=== PATIENT | male | born 1995 | race Caucasian/White ===

== ENCOUNTER 2024-04-25 06:50 | Day surgery (SDC) | payer BC ==
[2024-04-23 13:11] VITALS: BP 129/72
[~2024-04-25] VITALS: Ht 188 cm; Wt 72.7 kg
[~2024-04-25 06:50] MED LIST: ONDANSETRON ODT8 MG PO; VENTOLIN HFA18 GM INH; propofoL 200 MG/20 ML VIAL ONE
[2024-04-25] MEDS ORDERED: IBLOOD GLUCOSE TEST STRIP 1 EA TEST VI PRN (07:00)
[2024-04-25] MEDS ORDERED: LACTATED RINGER'S 1,000 ML IV SCH (07:00)
[2024-04-25] MEDS ORDERED: LIDOCAINE HCL 1% 5 ML SDV INJ ONE (07:00)
[2024-04-25 07:05] VITALS: BP 124/63
--- NOTE | 2024-04-25 07:20 | NUR ---
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
--- NOTE | 2024-04-25 09:00 | NUR ---
04/25/24 0900 Kate Peters 4373-PATIENT ARRIVED TO PACU ON 10L MASK NONAROUSABLE RR EVEN ORAL AIRWAY IN PLACE. PATIENT LAYING LEFT LATERAL. PLACED ON 6L MASK 100% SINUS BRADYCARDIA HR UPPER 40'S. ABDOMEN SOFT.
[2024-04-25 09:22] VITALS: BP 119/86
--- NOTE | 2024-04-25 10:43 | OR ---
[facility] [address] [place], [place] [address] Signed DATE OF OPERATION: 04/25/2024 SURGEON: Karin Solano MD PREOPERATIVE DIAGNOSES: 1. Rectal bleeding. 2. Hemorrhoids. 3. Maternal grandmother with possible colon cancer. POSTOPERATIVE DIAGNOSIS: Moderate internal and external hemorrhoids. PROCEDURE: Colonoscopy without biopsy. ESTIMATED BLOOD LOSS: None. INDICATIONS: Emanuel is a 28-year-old gentleman, originally from [place]. He has come up to [place], [place] for work. 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 He is also working at a local [employer]. He has noticed rectal bleeding. He said his work is very physical. He said he was rock climbing at about the age of 18. He had fallen and lost consciousness. He ended up at home. He was bruised all over and very sore. He said the left side was really painful. He even described hematemesis and hematochezia after the fall. He had a colonoscopy at that time. They found some hemorrhoids. He said he has trouble with the hemorrhoids intermittently. They do bleed intermittently as well. He has been to the [facility]. They gave him some hydrocortisone suppositories. He also uses MiraLAX and sitz baths as needed. He is thinking he would like to have the hemorrhoids removed. He has no family history of colon polyps. There is no family history of inflammatory bowel disease. He thinks maybe his maternal grandmother had colon cancer. In the office, I gave him our brochure on hemorrhoids and went through it in great detail. He does have some internal and external hemorrhoids on exam. He is very familiar with the medical versus surgical treatment. I also explained to Emanuel it would be sarabia if we do another colonoscopy. He is fully aware of a colonoscopy. There is risk including, but not limited to gas bloating, crampy abdominal pain, bleeding, perforation requiring surgery, and missed diagnosis. We also reviewed the written instructions for the bowel prep line by line. Also, he uses alcohol and marijuana on a daily basis. Therefore, he is a candidate for monitored anesthesia care with propofol infusion. He understands an adult person has to Electronically Signed By: KARIN SOLANO MD 04/25/24 1043 PATIENT NAME: EMANUEL MARI OPERATIVE REPORT DATE OF : [birth year] REPORT #: [id number] PHYSICIAN: KARIN SOLANO MD PCP: VANESA GREEN ASSISTANT PROFESSOR OF COMMUNICATION-C REPORT IS CONFIDENTIAL AND NOT TO BE RELEASED WITHOUT AUTHORIZATION [facility] [address] [place], [place] [address] Signed take him home afterwards. He had expressed understanding and wished to proceed. PROCEDURE IN DETAIL: Emanuel was taken into our endoscopy suite and placed in the left lateral decubitus position. He was given monitored anesthesia care with propofol infusion per our nurse fur cutting machine operator. Even then, he was moving around a fair amount. A digital rectal exam was performed and he does have circumferential external hemorrhoids. They prolapse easy with gentle traction. They are a little beefy. He had good sphincter tone. There were no masses. The adult colonoscope was introduced and advanced all around into the cecum under direct visualization of the camera without difficulty. His prep was quite excellent. We could easily see the appendiceal orifice and the ileocecal valve. The scope was then slowly withdrawn. He has no pathology throughout the entire colon or rectum. Once in the rectum, the scope was retroflexed and of course he has moderate beefy internal hemorrhoid columns. After this, the gas was suctioned out and the colonoscope removed. Emanuel tolerated the procedure quite well. RECOMMENDATIONS: Emanuel is welcome to follow up in my office as needed if he wants to pursue his hemorrhoid surgery. Otherwise, we would have him back in 10 years at the age of 38 for followup colonoscopy. He might check with his family to see if indeed his grandmother had colon cancer. MD ALLEY Garcia/BRIGIDAL /[id number] cc: MD Vanesa Garcia Copies: KARIN SOLANO MD ~ Electronically Signed By: KARIN SOLANO MD 04/25/24 1043 PATIENT NAME: EMANUEL MARI OPERATIVE REPORT DATE OF : [birth year] REPORT #: [id number] PHYSICIAN: KARIN SOLANO MD PCP: VANESA GREEN REPORT IS CONFIDENTIAL AND NOT TO BE RELEASED WITHOUT AUTHORIZATION
== END 2024-04-25 09:30 | disposition home or self-care (01) ==
LOC: DS 06:50
PROVIDERS: ATTEND Colon & Rectal Surgery
PROC: 0DJD8ZZ Inspection of Lower Intestinal Tract, Via Natural or Artificial Opening Endoscopic (ICD-10-PCS; principal; 2024-04-25 08:35)
DX: K64.8 Other hemorrhoids (principal); K64.4 Residual hemorrhoidal skin tags; F17.200 Nicotine dependence, unspecified, uncomplicated; Z88.8 Allergy status to other drugs, medicaments and biological substances
CPT/HCPCS: 00811; J2704; J7121

== ENCOUNTER 2024-06-13 06:45 | Day surgery (SDC) | payer BC ==
[2024-06-11 16:09] VITALS: BP 116/63
[~2024-06-13] VITALS: Ht 188 cm; Wt 72.7 kg
[~2024-06-13 06:45] MED LIST changes: +HYDROCORTISONE25 MG PR; +LACTATED RINGER'S 1,000 ML IV SCH; +MULTI VITAMIN1 EACH PO; -propofoL 200 MG/20 ML VIAL ONE
[2024-06-13 06:55] VITALS: BP 117/72
[2024-06-13] MEDS ORDERED: CEFAZOLIN SODIUM 2 GM/20 ML SYR IV SCH (07:00)
[2024-06-13] MEDS ORDERED: LIDOCAINE HCL 1% 5 ML SDV INJ ONE (07:00)
[2024-06-13] MEDS ORDERED: HEParin SOD (PORCINE) 5,000 UNIT/0.5 ML SYR SUB-Q SCH (07:00)
[2024-06-13] MEDS ORDERED: IBLOOD GLUCOSE TEST STRIP 1 EA TEST VI PRN (07:00)
[2024-06-13] MEDS ORDERED: metroNIDAZOLE/SODIUM CHLORIDE 500 MG/100 ML PIGGYBACK IV SCH (07:00)
[2024-06-13] MEDS ORDERED: VENTOLIN HFA18 GM INH (07:17)
--- NOTE | 2024-06-13 07:21 | NUR ---
MOM ERICK IN PARKING LOT.
--- NOTE | 2024-06-13 07:59 | NUR ---
VISITED DURING SPIRITUAL CARE ROUNDS. PT AND MOTHER DENIED NEEDS, NO OVERT SIGNS OF ANXIETY. CABLE TOOL DRILLER PROVIDED SUPPORTIVE PRESENCE, HOSPITALITY, PRAYER, FACILITATED INTERACTION WITH THERAPY ANIMAL. PT AND MOTHER EXPRESSED GRATITUDE.
[2024-06-13] MEDS ORDERED: fentaNYL citrate 100 MCG/2 ML VIAL ONE (08:49)
[2024-06-13] MEDS ORDERED: MIDAZOLAM HCL 2 MG/2 ML VIAL ONE (08:49)
[2024-06-13] MEDS ORDERED: BUPIVACAINE 0.75% IN DEXTROSE 2 ML AMP ONE (08:50)
[2024-06-13] MEDS ORDERED: LIDOCAINE HCL 2% 5 ML SDV ONE (08:50)
[2024-06-13] MEDS ORDERED: DEXAMETHASONE SOD PHOS 4 MG/ML VIAL ONE (08:54)
[2024-06-13] MEDS ORDERED: propofoL 200 MG/20 ML VIAL ONE (08:54)
--- NOTE | 2024-06-13 09:39 | NUR ---
DR SOLANO AND LINE RIDER RB IN TO TALK WITH PT.
[2024-06-13] MEDS ORDERED: NALOXONE HCL 0.4 MG SYR IV PRN (10:45)
[2024-06-13] MEDS ORDERED: ondansetron HCL 4 MG/2 ML VIAL IV PRN (10:45)
[2024-06-13] MEDS ORDERED: PROCHLORPERAZINE EDISYLATE 10 MG/2 ML VIAL IV PRN (10:45)
[2024-06-13] MEDS ORDERED: HYDROmorphone HCL 1 MG/ML SYR IV PRN (10:45)
--- NOTE | 2024-06-13 10:59 | NUR ---
06/13/24 1059 Emiliana Watson 1033- PT ARRIVES TO THE PACU WITH A NATURAL AIRWAY. BREATHING IS EVEN AND UNLABORED. PT IS NOT REACTIVE TO LIGHT TACTILE STIMULI. ALL MONITORS PUT IN PLACE. VSS. LR INFUSING IN R HAND. SURGICAL SITE SHOWS SOME RED DRAINAGE ON THE ESTRELLA PAD THAT IS IN PLACE. PT IS IN SEMI FOWLERS AND SHOWS NO APPARENT SIGNS OF DISTRESS. WILL CONTINUE TO MONITOR. 1039- PT WAKES TO VERBAL STIMULI AND PICKS HIS HEAD OFF THE PILLOW TO COUGH. PT CLAIMS HE HAS THIS COUGH NORMALLY. PT DENIES NAUSEA AND SAYS THAT HE IS MORE COMFORTABLE THAN HE WAS WHEN HE ARRIVED THIS MORNING CLAIMING A 3-4/10 ON THE PAIN SCALE WHICH IS TOLERABLE. EXTREMITY STRENGTH ASSESSED AND PT CLAIMS HIS FEET FEEL NORMAL, IS ABLE TO FOLLOW DIRECTIONS AND HAS GOOD STRENGTH. PT EASILY FALLS BACK TO SLEEP. 1050- PLAN OF CARE DISCUSSED. PT AGREES TO PLAN. ALL QUESTIONS AND CONCERNS ANSWERED AT THIS TIME. VSS. WILL CONTINUE TO MONITOR.
--- NOTE | 2024-06-13 11:28 | OR ---
[facility] [address] [place], [place] [address] Signed DATE OF OPERATION: 06/13/2024 SURGEON: Karin Solano MD PREOPERATIVE DIAGNOSIS: Bleeding internal and external hemorrhoids. POSTOPERATIVE DIAGNOSIS: Bleeding internal and external hemorrhoids. PROCEDURE: Internal and external hemorrhoidectomy x2. ESTIMATED BLOOD LOSS: 10 mL. FINDINGS: Emanuel indeed had irritated small to moderate sized internal hemorrhoids in the left posterior position, the right posterior position and in the right anterior position. We removed the two hemorrhoids posteriorly on the left and right. INDICATIONS: Emanuel is a 28-year-old gentleman, who happens to work at a local [employer]. He is having trouble with bleeding hemorrhoids. We completed his colonoscopy and he did well. He has maintained his desire to proceed with hemorrhoid surgery. He has been using various conservative measures without much success. I have given him brochures on hemorrhoids as well as pruritus ani. We went through carefully page by page. He understands the medical versus surgical treatment. We have always encouraged the patients to buy Balneol lotion as well as Benefiber for the hemorrhoids. Of course, Vaseline would work in a pinch as well. He understands that hemorrhoid surgery is very painful. We can suture the internal component, but not the external component. He understands remove all the hemorrhoid tissue that he could suffer with bleeding hemorrhoids in the future. There is risk to the surgery including, but not limited to bleeding, infection, scarring, change in contour of the skin, anal stenosis, and recurrent hemorrhoids. He had expressed understanding and wished to proceed. PROCEDURE IN DETAIL: I met with Emanuel and his mother in our preop area. He agreed on the hemorrhoid surgery. After this, our nurse electronics parts sales representative placed a saddle block. Emanuel was then taken to the operating room and placed in the prone rakan-knife position. He was given Electronically Signed By: KARIN SOLANO MD 06/13/24 1128 PATIENT NAME: EMANUEL MARI OPERATIVE REPORT DATE OF : [birth year] REPORT #: [id number] PHYSICIAN: KARIN SOLANO MD PCP: LAINEY GREEN REPORT IS CONFIDENTIAL AND NOT TO BE RELEASED WITHOUT AUTHORIZATION [address] [address] Signed monitored anesthesia care with the help of our nurse electronics parts sales representative. He was then prepped and draped in the usual sterile fashion. A digital rectal exam was performed. Again, he has good sphincter tone. No fistula tracts or anal fissures. He actually has three internal and external hemorrhoid columns. He has the left posterior, the right posterior and then the right anterior positions. We felt the two posterior hemorrhoids were the largest and the most troublesome. We removed the left and the right with the help of 2-0 chromic suture at the apex of the hemorrhoid. Then, we excised the hemorrhoids and then we closed the internal component with a running locked 2-0 chromic suture. The external component was left open for drainage. At that point, he had and we did not proceed with the 3rd hemorrhoid column and the right anterior position. We left that intact. After this, we injected local anesthetic around the anus for a field block. We then carefully directly visualized the internal and external sphincter muscles as we proceeded. After this, dry gauze, ABD and underwear were placed. Emanuel was rotated in the supine position on his hospital bed and taken into recovery room in stable condition. Karin Solano MD ALB/MODL /[id number] cc: ARABELLA Burrell MD Copies: KARIN SOLANO MD ~ Electronically Signed By: KARIN SOLANO MD 06/13/24 1128 PATIENT NAME: EMANUEL MARI OPERATIVE REPORT DATE OF : [birth year] REPORT #: [id number] PHYSICIAN: KARIN SOLANO MD PCP: LAINEY GREEN BUTADIENE CONVERTER OPERATOR-C REPORT IS CONFIDENTIAL AND NOT TO BE RELEASED WITHOUT AUTHORIZATION
[2024-06-13 11:30] VITALS: BP 135/80
[2024-06-13] MEDS ORDERED: OXYCODONE HCL 5 MG TAB PO PRN (12:00)
--- NOTE | 2024-06-13 12:05 | NUR ---
RETURNED TILL ABLE TO VOID. REQUESTED RX FOR PAIN. CALL TO DR SOLANO. EATING PUDDING.
[2024-06-13 12:28] VITALS: BP 166/101
--- NOTE | 2024-06-13 12:30 | NUR ---
STATES NOT ABLE TO VOID. GETTING UNCOMFORTABLE.
--- NOTE | 2024-06-13 12:39 | NUR ---
DR SOLANO SAYS TO GET PAIN UNDER CONTROL GIVE RX.
[2024-06-13] MEDS ORDERED: ACETAMINOPHEN 1,000 MG/100 ML VIAL IV ONE (12:45)
[2024-06-13 13:41] VITALS: BP 147/90
--- NOTE | 2024-06-13 13:59 | NUR ---
HAS AMB MANY TIMES IN HALLWAY. ABLE TO VOID 100MLS URINE. WANTED TO GO HOME AND MOTHER IS HERE TO TAKE HIM.
--- NOTE | 2024-06-13 14:00 | NUR ---
HAD 400MLS EMESIS PRIOR TO VOIDING. STATES HE FEELS BETTER. DECLINES TO WAIT OR TAKE RX.
--- NOTE | 2024-06-15 16:34 | PATH ---
[facility] [address] [place], [place] [address] Signed SPECIMEN(S): A LEFT HEMORRHOID COLUMN SPECIMEN(S): B RIGHT HEMORRHOID COLUMN SPECIMEN SOURCE: A. LEFT HEMORRHOID COLUMN B. RIGHT HEMORRHOID COLUMN CLINICAL HISTORY: Hemorrhoid. FINAL PATHOLOGIC DIAGNOSIS: A. Left hemorrhoid column: - Polypoid anal and rectal type mucosa with dilated hemorrhoidal vasculature. B. Right hemorrhoid column: - Polypoid anal and rectal type mucosa with dilated hemorrhoidal vasculature. JVR:cml MICROSCOPIC EXAMINATION: Histologic sections of all submitted blocks are examined by light microscopy. These findings, together with the gross examination, support the pathologic diagnosis. GROSS DESCRIPTION: A. The specimen, labeled and designated "Oracio, left hemorrhoid column," is received in formalin and consists of donut shaped skin and mucosal tissue fragment that measure 2.5 x 2.0 x 1.1 cm. Sectioning through the specimen reveal dark red, congested subcutaneous and submucosal tissue. Prevention Coordinator sections are submitted in (A1). B. The specimen, labeled and designated "Oracio, right hemorrhoid column," is received in formalin and consists of irregular shaped skin and mucosal tissue fragment that measure 2.6 x 1.8 x 0.7 cm. Sectioning through the specimen reveal dark red, congested submucosal and subcutaneous tissue. Prevention Coordinator sections are submitted in (B1). JS (under the direct supervision of a pathologist) The Gross Description was prepared using a voice recognition system. The report was reviewed for accuracy; however, sound-alike word errors, addition and/or deletions may occur. If there is any question about this report, please contact Client Services. PERFORMING LABORATORY: Technical component was performed by [employer], [place], PATIENT NAME: IZA MARI PATHOLOGY DATE OF : [birth year] REPORT #: [id number] PHYSICIAN: PEREZ PATHOLOGY PCP: LAINEY GREEN REPORT IS CONFIDENTIAL AND NOT TO BE RELEASED WITHOUT AUTHORIZATION [facility] [address] [place], [place] [address] [place] [address] (CLIA# [id number]). Professional interpretation was performed by [facility] - [facility], [address] [place] [phone] (CLIA#: [id number]). Diagnostician: Celio Steele MD Pathologist Electronically Signed 06/15/2024 Copies: ~ PATIENT NAME: IZA MARI PATHOLOGY DATE OF : [birth year] REPORT #: [id number] PHYSICIAN: PEREZ MORA PCP: LAINEY GREEN REPORT IS CONFIDENTIAL AND NOT TO BE RELEASED WITHOUT AUTHORIZATION
== END 2024-06-13 13:35 | disposition home or self-care (01) ==
LOC: DS 06:45
PROVIDERS: ATTEND Colon & Rectal Surgery
PROC: 06BY0ZC Excision of Hemorrhoidal Plexus, Open Approach (ICD-10-PCS; principal; 2024-06-13 09:00)
DX: K64.8 Other hemorrhoids (principal); K64.4 Residual hemorrhoidal skin tags; Z88.8 Allergy status to other drugs, medicaments and biological substances
CPT/HCPCS: 00902; A9270; J0131; J0690; J1100; J1644; J2003; J2250; J2704; J3010; J7121